=== PATIENT | female | born 1970 | race Caucasian/White ===

== ENCOUNTER 2019-05-27 21:13 | Emergency (ER) | payer OTHER, MEDICAID ==
[~2019-05-27] VITALS: Ht 162.6 cm; Wt 75.5 kg
[2019-05-27] MEDS ORDERED: METO-558 PO (21:21)
[2019-05-27] MEDS ORDERED: IBUPROFEN 800 MG TABLET PO ONE (22:30)
[2019-05-27 22:45] VITALS: BP 143/82
== END 2019-05-27 23:24 | disposition home or self-care (01) ==
LOC: EMS 21:15
DX: S92.342A Displaced fracture of fourth metatarsal bone, left foot, initial encounter for closed fracture (principal); I10 Essential (primary) hypertension; Z88.1 Allergy status to other antibiotic agents; V43.52XA Car driver injured in collision with other type car in traffic accident, initial encounter; Y93.89 Activity, other specified; Y92.89 Other specified places as the place of occurrence of the external cause; Y99.8 Other external cause status